=== PATIENT | female | born 1975 | race Caucasian/White ===

== ENCOUNTER 2018-07-13 07:06 | Day surgery (SDC) | payer OTHER ==
--- NOTE | 2018-06-29 07:50 | HP ---
AMENDED REPORT NOW INCLUDES DESIGNATED COSIGNER CC: Dr. Sanon; Dr. Pereyra; Dr. Stover * ADMISSION HISTORY AND PHYSICAL: DATE OF ADMISSION: 07/13/18 ATTENDING SURGEON: Dr. Deepa Huynh. * (DICTATED BY FRANSISCO ANDRES) CHIEF COMPLAINT: Right breast cancer. HISTORY OF PRESENT ILLNESS: This is a generally healthy 43-year-old female who first noted a lump in the right breast maybe in January or February of this year. She was seen by Dr. Stover on 04/25/18. His exam did confirm the presence of a palpable mass in the right breast. A subsequent mammogram on 05/24/18 showed only some localized clustering of calcifications in the medial inferior aspect of the breast. An ultrasound from that same day showed a spiculated mass measuring 1 x 0.8 x 1.4 cm. Ultrasound-guided biopsy was obtained on 05/31/18, which was positive for ductal carcinoma. Estrogen and progesterone receptors were both positive, HER-2/jewels receptor was negative. The patient has not had any other prior breast surgeries. She was recently on control pills for greater than 10 years, but has since stopped. She was lactating at that time of the appearance of the mass, but has also stopped. Her family history is positive for her mother being recently diagnosed with breast cancer herself at age 67, apparently receiving neoadjuvant therapy at the present time with future plans for surgery. The patient has had genetic testing drawn, which is still pending. She was seen in the office by Dr. Huynh on 06/06/18, at which time, the exam showed a dominant mass in the right breast at 5 o'clock position. This was located 3 cm from the nipple and described as hard, irregular, but well-defined and mobile. There was no palpable cervical, supraclavicular, or axillary adenopathy bilaterally. There were no palpable dominant masses in the left breast. Dr. Huynh discussed with the patient the options for surgery. She has also been seen by Dr. Pereyra and Dr. Sanon. She understands the indications for surgery, the risks, benefits, and alternatives, and would like to proceed as scheduled with excision of right breast cancer with sentinel lymph node biopsy. PAST MEDICAL HISTORY: No significant active or past medical problems. PAST SURGICAL HISTORY: Her only prior surgery was an . CURRENT MEDICATIONS: None (recently on control pills, but stopped). DRUG ALLERGIES: CODEINE (itching) (the patient believes she has taken Percocet in the past without problem). FAMILY HISTORY: Breast cancer as noted above. No family history of additional breast cancer or ovarian cancer. No family history of anesthesia problems, bleeding, or clotting disorders. SOCIAL HISTORY: The patient is . She has 2 children. 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 She smoked in social situations while in college, but not in recent years. She drinks on average 1 glass of wine per month. She denies any other recreational drug use. REVIEW OF SYSTEMS: General: No recent constitutional symptoms or acute illnesses. HEENT: No problems reported. No visual changes. Cardiovascular: No chest pain, palpitations or history of heart murmur. Respiratory: No history of asthma, chronic cough, or shortness of breath. GI: No problems reported. : No problems reported. 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 See also above per HPI. Endocrine: No diabetes or thyroid dysfunction. Remainder of review of systems is negative. PHYSICAL EXAMINATION GENERAL: Well-nourished, well-developed female, in no acute distress. VITAL SIGNS: Height 5 feet 1 inch, weight 105 pounds, blood pressure 98/62, pulse 66, respirations 16, temperature 97.4. HEENT: Pupils equal, round, and reactive. EOMs intact. No conjunctival pallor. Oropharynx: Teeth in good repair. No intraoral lesions. NECK: No lymphadenopathy in the cervical or supraclavicular regions. No axillary lymphadenopathy per Dr. Huynh's exam. No thyromegaly or masses. LUNGS: Clear to auscultation. No wheezes. HEART: Regular rate and rhythm. No murmur noted. BREASTS: Per Dr. Huynh's exam not repeated. ABDOMEN: Soft, nontender to palpation. No palpable masses or organomegaly. GENITALIA: Not done. RECTAL: Not done. BACK: No spinous process or CVA tenderness. EXTREMITIES: No edema. NEUROLOGIC: Grossly intact. SKIN: Warm and dry. No suspicious rashes or lesions noted. IMPRESSION: Right breast cancer. PLAN: Excision, right breast cancer; sentinel lymph node biopsy. FRANSISCO ANDRES [id number]/[facility] #: [id number] LOUIE
[~2018-07-13 07:06] MED LIST: Buffered Lidocaine 0.9% SYRIN* 5 ML/SYR SYRINGE INTRADERM ONE; Lactated Ringers 1000 ML Bag* 1,000 ML IV SCH
[2018-07-13] MEDS ORDERED: Lidocaine 2.5%/Prilocain 2.5%* 5 GM TUBE ONE ×2 (07:32→09:15)
[2018-07-13] MEDS ORDERED: ceFAZolin 2 GM PREMIX in ORs 2 GM/50 ML BAG IVPB ONE (09:39)
[2018-07-13] MEDS ORDERED: Methylene Blue 0.5 %* 50 MG/10 ML AMP IV ONE ×2 (10:00→10:46)
[2018-07-13] MEDS ORDERED: Bupivacaine 0.25% W/EPI* 10 ML SDV ONE (10:46)
[2018-07-13] MEDS ORDERED: Lidocaine 1% INJ* 10 MG/ML 30 ML SDV ONE (10:46)
[2018-07-13] MEDS ORDERED: Bupivacaine 0.25% SDV PF* 10 ML VIAL INJ ONE (10:47)
[2018-07-13] MEDS ORDERED: Bupivacaine 0.5% PF 10 ML VIAL INJ ONE (10:47)
[2018-07-13] MEDS ORDERED: Propofol* 10 MG/ML 20 ML BTL ONE (11:00)
[2018-07-13] MEDS ORDERED: fentaNYL* 50 MCG/ML 2 ML VIAL (100 MCG VIAL) ONE (11:00)
[2018-07-13] MEDS ORDERED: Lidocaine 2% PF * 5 ML VIAL ONE (11:00)
[2018-07-13] MEDS ORDERED: Midazolam* 1 MG/ML 2 ML VIAL (2 MG) ONE (11:00)
[2018-07-13] MEDS ORDERED: Naloxone* 0.4 MG/ML 1 ML VIAL IV PRN (11:03)
[2018-07-13] MEDS ORDERED: Ketorolac INJ* 30 MG/ML 1 ML VIAL IV PRN (11:03)
[2018-07-13] MEDS ORDERED: Ondansetron INJ* 2 MG/ML VIAL IV PRN (11:03)
[2018-07-13] MEDS ORDERED: fentaNYL* 50 MCG/ML 2 ML VIAL (100 MCG VIAL) IV PRN (11:03)
[2018-07-13] MEDS ORDERED: Dexamethasone IV* 4 MG/ML 1 ML (4 MG) ONE (11:19)
--- NOTE | 2018-07-13 13:11 | BRIEFOPN ---
Brief Operative Note - Surgery Procedures: 07/13/18 Op Note Pre-op dx: right breast cancer Post-op dx: same Procedure: excision right breast cancer and sentinel lymph node biopsy Surgeon: Lino Asst: none Anesth: general EBL: 10 cc SCDs on during surgery Abx: given pre-op Complications: none Pt. tolerated procedure well and was transferred to in a stable condition. CLFoster
[2018-07-13] MEDS ORDERED: Ketorolac INJ* 30 MG/ML 1 ML VIAL ONE (14:26)
[2018-07-13 14:29] VITALS: BP 105/59
--- NOTE | 2018-07-13 21:21 | OP ---
CC: [facility] * DATE OF OPERATION: 07/13/18 - [facility] DATE OF : 77 SURGEON: Deepa Huynh M.D. EMERGENCY WORKER: There was no assistant fitness manager for this case. PRE-OP DIAGNOSIS: Right breast cancer. POST-OP DIAGNOSIS: Right breast cancer. OPERATIVE PROCEDURE: Excision of right breast cancer and sentinel lymph node biopsy. INDICATIONS: Ms. Dudley is a 43-year-old woman, recently diagnosed with breast cancer, who opted for lumpectomy and sentinel node biopsy. She was therefore prepared for surgery and on the morning of surgery, underwent sentinel lymph node localization with radiotracer without difficulty. She was then brought to the holding area where blue dye was injected preoperatively. This was done aseptically in the dank-tumoral region. DESCRIPTION OF PROCEDURE: She was then brought to the operating room, placed on the OR table in a supine position and given general anesthesia. The right breast and axilla were prepped and draped in the usual sterile fashion. After infiltrating with local anesthetic, an incision was made in an elliptical fashion over the mass so that some skin was excised with the mass. Subcutaneous tissue was divided with electrocautery to excise the mass. It was marked in the usual fashion and handed off as a specimen. Hemostasis was assured with electrocautery, and once this appeared adequate, some additional local was instilled and then closure was accomplished with 3-0 Vicryl in the subcutaneous layer and the skin was closed with 4-0 Prolene in a subcuticular fashion. Attention was then turned to the axilla where using a navigator, the proximal location of the sentinel node was identified. After infiltrating with local anesthetic, a curvilinear incision was made in the inferior axillary region. Subcutaneous tissue was then divided with electrocautery down to the level of the axillary fat-pad. Then, using the navigator to identify the proximal location of the sentinel node, one sentinel node popped into view very easily, it was both radioactive and blue. This was excised using blunt and sharp dissection and clips to control the small lymphatic and blood vessels that approached the clamp. Once it was done, it was recognized that there appeared to be two portions to this gland, and so the 2 sections were , one was not stained blue, but the blue-stained node had ex vivo counts of around 1286. The in situ counts had been 2165. So, it was thought that there might be some persistent sentinel node activity. The second sentinel node, which was in continuity with the first had counts of 36. Searching for a third sentinel node, one was identified that had in situ counts of 700. Further dissection exposed another blue-stained node, which had elevated counts. It was dissected free from surrounding tissue in the same fashion, as the other nodes had been removed and was noted to have ex vivo counts of around 1647. The axillary bed counts were then checked and were two. The wound was inspected for hemostasis, which appeared adequate, so it was irrigated with saline and then closure was accomplished with 3-0 Vicryl in the subcutaneous layer and the skin was closed with 4-0 Prolene in a subcuticular fashion. At this point, it was recognized that clips had not been placed in the cavity of the breast incision. So, the 4-0 Prolene stitch was removed and this allowed access to use a clip silver recovery operator to place clips to lorena the consigns of the cavity. The wound was then reclosed with a second stitch of 4-0 Prolene. Steri- Strips and dry sterile dressing were applied to both incision sites. All sponge and instrument counts were correct. The patient tolerated the procedure well and was transferred to Recovery in a stable condition. [id number]/[facility] #: [id number] [facility]
== END 2018-07-13 17:37 | disposition home or self-care (01) ==
LOC: OR 07:06
PROVIDERS: ATTEND Surgery
DX: C50.911 Malignant neoplasm of unspecified site of right female breast (principal)
CPT/HCPCS: 78195; 81025; 88307; 88342; A9270-GY; A9541; J0690; J1100; J1885; J2250; J2704; J3010; J3490